=== PATIENT | female | born 1945 | race Caucasian/White ===

== ENCOUNTER 2017-09-26 22:24 | Inpatient (IN) | payer OTHER, MEDICARE ==
[~2017-09-26] VITALS: Ht 165.1 cm; Wt 87.8 kg
[~2017-09-26 22:24] MED LIST: ALLO100T PO; AMLO5TAB22 PO; ASPI81 CHEW; FENO54TA PO; IRON325T2 PO; LEVA250T PO; LISI-363 PO; LOVA40TA PO; PAXI20TA26 PO; PROT40TA PO; TAB-TAB PO
[2017-09-26 22:37] VITALS: BP 115/59; PULSE 72; RESP 20; TEMP 98.2; O2SAT 97
[2017-09-27] VITALS (10 sets, daily range): BP systolic 132–158; BP diastolic 67–79; PULSE 63–85; RESP 18–22; TEMP 97–101; O2SAT 95–98
--- NOTE | 2017-09-27 00:24 | PD ---
HPI Chief Complaint: Cold / Flu Symptoms Time Seen by Provider: 00:19 Travel History International Travel<30 days: No Contact w/Intl Traveler<30days: No Traveled to known affect area: No History of Present Illness HPI The patient is a 72-year-old female that complains of cough and congestion for 2 weeks. She was already seen by her primary care physician and her primary care physician gave her Biaxin, she has already completed the course of Biaxin yesterday. The cough is nonproductive. She was definitely short of breath earlier tonight and this is one reason she came in to be seen in the emergency department. PFSH Past Medical History Arthritis: Yes Asthma: No Autoimmune Disease: No Blood Disorders: No Anxiety: No Depression: No Heart Rhythm Problems: No Cancer: No Cardiovascular Problems: No High Cholesterol: Yes Chemotherapy: No Chest Pain: No Congestive Heart Failure: No COPD: No Cerebrovascular Accident: No Diabetes: No Diminished Hearing: No Endocrine: No Gastrointestinal Disorders: Yes GERD: Yes Glaucoma: No Genitourinary: No Hepatitis: No Hiatal Hernia: No Hypertension: Yes Immune Disorder: No Implanted Vascular Access Dvce: Yes Kidney Stones: No Musculoskeletal: Yes Neurologic: No Psychiatric: No Reproductive: Yes (hysterectomy) Respiratory: Yes Immunizations Current: Yes Migraines: No Myocardial Infarction: No Pneumonia: Yes (" A CHILD") Radiation Therapy: No Renal Failure: No Seizures: No Sickle Cell Disease: No Sleep Apnea: Yes (CPAP) Thyroid Disease: No Ulcer: Yes Menopausal: Yes Past Surgical History Abdominal Surgery: No AICD: No Arteriovenous Shunt: No Cardiac Surgery: No Ear Surgery: No Endocrine Surgery: No Eye Surgery: No Genitourinary Surgery: No Gynecologic Surgery: Yes (HYSTERECTOMY) Hysterectomy: Yes Insulin Pump: No Joint Replacement: Yes (BILAT KNEE, RIGHT HIP) Oral Surgery: No Pacemaker: No Thoracic Surgery: No Other Surgery: Yes (BENIGN TUMOR L POSTERIOR FOOT,EXCISED 1979) Social History Alcohol Use: No Tobacco Use: No Substance Use: No Allergies-Medications (Allergen,Severity, Reaction): Coded Allergies: penicillin G (Unverified Allergy, Severe, HIVES, 03/14/17) penicillin V (Unverified Allergy, Severe, 03/14/17) Reported Meds & Prescriptions Reported Meds & Active Scripts Active Reported Sodium Bicarbonate 650 Mg Tab 650 Mg PO TIDPC Pantoprazole (Pantoprazole Sodium) 40 Mg Tab 40 Mg PO DAILY Paroxetine (Paroxetine HCl) 20 Mg Tab 20 Mg PO DAILY Multivitamins with Minerals Hp (Multivitamin,Ther and Minerals) 1 Each Capsule [place]-3 Fish Oil/Vitamin (Fish Oil-Cholecalciferol) 1,000-1,000 Mg Cap 1 Cap PO DAILY Lisinopril 20 Mg Tab 20 Mg PO DAILY Cranberry (Cranberry Fruit Extract) 500 Mg Capsule 500 Mg PO DAILY Aspirin 81 Mg Chew 81 Mg CHEW DAILY Amlodipine (Amlodipine Besylate) 10 Mg Tab 10 Mg PO DAILY Allopurinol 100 Mg Tab 100 Mg PO DAILY Ferrous Sulfate 325 Mg (65 Mg Iron) Tablet 325 Mg PO MON/MON/FRI Vitamin D3 (Cholecalciferol) 400 Unit Cap 400 Units PO DAILY Review of Systems Except as stated in HPI: all other systems reviewed are Neg Physical Exam Narrative GENERAL: SKIN: Focused skin assessment warm/dry. HEAD: Atraumatic. Normocephalic. EYES: Pupils equal and round. No scleral icterus. No injection or drainage. ENT: No nasal bleeding or discharge. Mucous membranes pink and moist. NECK: Trachea midline. No JVD. CARDIOVASCULAR: Regular rate and rhythm. No murmur appreciated. RESPIRATORY: No accessory muscle use. Bilateral wheezes and mostly rhonchi are heard in all lung bojorquez. Breath sounds equal bilaterally. GASTROINTESTINAL: Abdomen soft, non-tender, nondistended. Hepatic and splenic margins not palpable. MUSCULOSKELETAL: No obvious deformities. No clubbing. No cyanosis. No edema. NEUROLOGICAL: Awake and alert. No obvious cranial nerve deficits. Motor grossly within normal limits. Normal speech. PSYCHIATRIC: Appropriate mood and affect; insight and judgment normal. Data Data Last Documented VS Vital Signs Date Time Temp Pulse Resp B/P (MAP) Pulse Ox O2 Delivery O2 Flow Rate FiO2 09/27/17 00:00 97.7 85 18 138/74 (95) 97 Room Air Orders Orders Influenzae A/B Antigen (09/27/17 00:19) Chest, Pa & Lat (09/27/17 00:19) Albuterol-Ipratropium Neb (Duoneb Neb) (09/27/17 00:30) B-Type Natriuretic Peptide (09/27/17 01:31) Electrocardiogram (09/27/17 01:33) Basic Metabolic Panel (Bmp) (09/27/17 01:33) Complete Blood Count With Diff (2/28/18 01:33) Urinalysis - C+S If Indicated (09/27/17 01:33) Blood Culture (09/27/17 01:33) Arterial Blood Gas (Abg) (09/27/17 01:33) Sodium Chloride 0.9% Flush (Ns Flush) (09/27/17 01:45) Ceftriaxone Inj (Rocephin Inj) (09/27/17 01:45) Azithromycin Inj (Zithromax Inj) (09/27/17 01:45) Admit Order (Ed Use Only) (09/27/17 01:38) Labs Laboratory Tests Test 09/27/17 01:40 Blood Gas Puncture Site RT RADIAL Blood Gas Patient Temperature 98.6 Blood Gas HCO3 15 mmol/L Blood Gas Base Excess -9.9 mmol/L Blood Gas Oxygen Saturation 95 % Arterial Blood pH 7.36 Arterial Blood Partial Pressure CO2 26 mmHG Arterial Blood Partial Pressure O2 92 mmHG Arterial Blood Oxygen Content 12.2 Vol % Arterial Blood Carboxyhemoglobin 1.2 % Arterial Blood Methemoglobin 0.9 % Blood Gas Hemoglobin 9.0 G/DL Blood Gas Inspired Oxygen 21 % MDM Medical Decision Making Medical Screen Exam Complete: Yes Emergency Medical Condition: Yes Medical Record Reviewed: Yes Differential Diagnosis Pneumonia, bronchitis, bronchitis with bronchospasm, viral upper respiratory infection, hypoxemia Narrative Course The patient has a bilateral pneumonia. She was admitted to the [facility], Dr. Berman. The patient did benefit from DuoNeb treatments. However, she was still short of breath after the DuoNeb treatments and wanted admission, she did not feel comfortable going home. Diagnosis Primary Impression: Bilateral pneumonia Admitting Information Admitting Physician Requests: Admit Jaoo Coy MD Sep 27, 2017 00:24
[2017-09-27] MEDS: RESP: ALBUTEROL 2.5 MG/IPRATROPIUM 0.5 MG NEB (SCH) INH (00:31)
--- NOTE | 2017-09-27 01:16 | RADRPT ---
EXAM DATE/TIME: 09/27/2017 00:33 [facility] COMPARISON: No previous studies available for comparison. INDICATIONS : Cough and congestion. MEDICAL HISTORY : None. SURGICAL HISTORY : None. ENCOUNTER: Initial ACUITY: 2 weeks PAIN SCORE: 0/10 LOCATION: Bilateral chest FINDINGS: Mild diffuse interstitial prominence with patchy airspace opacities in the right upper lobe and bilat eral lower lobes. Cardiomediastinal contours are within normal limits. Bony thorax is intact. CONCLUSION: 1. Mild diffuse interstitial edema with patchy airspace opacities in the right upper lobe and bilater al lower lobes. Cannot exclude developing multilobar pneumonia in the appropriate clinical setting. Heladio Vergara MD on September 27, 2017 at 1:13 Board Certified Radiologist. This report was verified electronically.
[2017-09-27] MEDS ORDERED: AZITHROMYCIN INJ 500 MG in SODIUM CHLOR 0.9% 250 ML INJ 250 ML IV ONE (01:45)
[2017-09-27] MEDS ORDERED: cefTRIAXone INJ 1,000 MG in SODIUM CHLORIDE 0.9% INJ 100 ML IV ONE (01:45)
[2017-09-27] MEDS ORDERED: SODIUM CHLORIDE 0.9% FLUSH 10 ML FLUSH IVF PRN (01:45)
[2017-09-27 02:11] LABS: AUTOMATED NEUTROPHIL # 10.8 TH/MM3 (1.8-7.7); BASOPHIL % 0.2 % (0.0-2.0); EOSINOPHIL # 0.1 TH/MM3 (0-0.4); EOSINOPHIL % 0.5 % (0.0-4.0); HEMATOCRIT 27.5 % (35.0-46.0); HEMOGLOBIN 9.1 GM/DL (11.6-15.3); LYMPH % 15.7 % (9.0-44.0); LYMPHOCYTE # 2.2 TH/MM3 (1.0-4.8); MEAN CELL VOLUME 88.7 FL (80.0-100.0); MEAN CORPUSCULAR HEMOGLOBIN 29.4 PG (27.0-34.0); MEAN CORPUSCULAR HGB CONC 33.2 % (32.0-36.0); MEAN PLATELET VOLUME 7.2 FL (7.0-11.0); MONO % 5.4 % (0.0-8.0); MONOCYTE # 0.8 TH/MM3 (0-0.9); NEUT % 78.2 % (16.0-70.0); PLATELET COUNT 406 TH/MM3 (150-450); RED CELL DISTRIBUTION WIDTH 14.1 % (11.6-17.2); WHITE BLOOD COUNT 13.9 TH/MM3 (4.0-11.0)
[2017-09-27 02:12] LABS: BILIRUBIN, URINE NEG (NEG); BLOOD, URINE NEG (NEG); GLUCOSE,URINE NEG (NEG); KETONE, URINE NEG (NEG); NITRITE,URINE NEG (NEG); URINE LEUKOCYTE ESTERASE NEG (NEG)
[2017-09-27] MEDS ORDERED: NALOXONE HCL 0.4 MG/ML AMP IV PUSH PRN (02:15)
[2017-09-27] MEDS ORDERED: SODIUM CHLORIDE 0.9% FLUSH 10 ML FLUSH IV FLUSH PRN (02:15)
[2017-09-27] MEDS ORDERED: methylPREDNISolone SOD SUCC 125 MG/2 ML VIAL IV PUSH ONE (02:15)
[2017-09-27 02:21] LABS: MUCUS URINE FEW /lpf (OCC); URINE COLOR YELLOW (YELLW/STRAW)
[2017-09-27 02:22] LABS: RBC, URINE 0-3 /hpf (0-3)
[2017-09-27 02:23] LABS: AMORPHOUS SEDIMENT, URINE SMALL; SQUAMOUS EPITHELIAL CELL URINE 0-5 /hpf (0-5); WBC, URINE 0-2 /hpf (0-5)
[2017-09-27 02:30] LABS: BICARBONATE 18.6 MEQ/L (21.0-32.0); CALCIUM 8.3 MG/DL (8.5-10.1); CREATININE 1.8 MG/DL (0.50-1.00)
[2017-09-27] MEDS ORDERED: FERR325T18 PO (02:50)
[2017-09-27] MEDS ORDERED: CHOL1CAP8 PO (02:50)
[2017-09-27] MEDS ORDERED: POTASSIUM CHLORIDE 20 MEQ CONTROLLED RELEASE TAB PO ONE ×2 (03:00→10:00)
[2017-09-27] MEDS ORDERED: ASPI-516 CHEW (03:35)
[2017-09-27] MEDS ORDERED: CRAN500C9 PO (03:35)
[2017-09-27] MEDS ORDERED: AMLO10TA2 PO (03:35)
[2017-09-27] MEDS ORDERED: LISI-515 PO (03:35)
[2017-09-27] MEDS ORDERED: PANT40TA3 PO (03:35)
[2017-09-27] MEDS ORDERED: SODI650T PO (03:35)
[2017-09-27] MEDS ORDERED: ALLO100T PO (03:35)
[2017-09-27] MEDS ORDERED: MULTCAP (03:35)
[2017-09-27] MEDS ORDERED: OMEGCAP PO (03:35)
[2017-09-27] MEDS ORDERED: PARO20TA2 PO (03:35)
[2017-09-27 10:42] LABS: AUTOMATED NEUTROPHIL # 12.4 TH/MM3 (1.8-7.7); BASOPHIL % 0.2 % (0.0-2.0); EOSINOPHIL # 0.1 TH/MM3 (0-0.4); EOSINOPHIL % 0.5 % (0.0-4.0); HEMATOCRIT 25.6 % (35.0-46.0); HEMOGLOBIN 8.4 GM/DL (11.6-15.3); LYMPH % 6.3 % (9.0-44.0); LYMPHOCYTE # 0.9 TH/MM3 (1.0-4.8); MEAN CELL VOLUME 89.2 FL (80.0-100.0); MEAN CORPUSCULAR HEMOGLOBIN 29.2 PG (27.0-34.0); MEAN CORPUSCULAR HGB CONC 32.7 % (32.0-36.0); MEAN PLATELET VOLUME 6.8 FL (7.0-11.0); MONO % 3.1 % (0.0-8.0); MONOCYTE # 0.4 TH/MM3 (0-0.9); NEUT % 89.9 % (16.0-70.0); PLATELET COUNT 407 TH/MM3 (150-450); RED BLOOD COUNT 2.87 MIL/MM3 (4.00-5.30); RED CELL DISTRIBUTION WIDTH 14.1 % (11.6-17.2); WHITE BLOOD COUNT 13.8 TH/MM3 (4.0-11.0)
[2017-09-27 11:01] LABS: CALCIUM 8.2 MG/DL (8.5-10.1)
[2017-09-27 11:02] LABS: MAGNESIUM 1.6 MG/DL (1.5-2.5)
[2017-09-27 11:05] LABS: CREATININE 1.6 MG/DL (0.50-1.00)
[2017-09-27] MEDS: SODIUM CHLORIDE 0.9% FLUSH 10 ML FLUSH IV FLUSH SCH ×2 (11:14→21:15)
--- NOTE | 2017-09-27 11:38 | EKG ---
Date Performed: 09/27/2017 Time Performed: 02:13:09 PTAGE: 72 years EKG: Sinus rhythm NONSPECIFIC T-WAVE ABNORMALITY BORDERLINE ECG PREVIOUS TRACING : 07/17/2013 19.48 Compared to prior tracing, nonspecific T wave changes are now present. DOCTOR: Kishore Washburn Interpretating Date/Time 09/27/2017 11:56:43
--- NOTE | 2017-09-27 12:13 | HHI.HP ---
HPI Service [facility] Primary Care Physician Makenna Segura Do, MD Admission Diagnosis Bilateral pneumonia Diagnoses: Travel History International Travel<30 Days: No Contact w/Intl Traveler <30 Da: No Traveled to Known Affected Are: No History of Present Illness a while back, had cold and is getting worse and worse wthi cold went to bed at 9p.m. was coughign constantly when she wakes up, and could not stop, anxious and family brought her hree symptoms started 1.5 weeks ago took 1 week or more course of antibiotics - 2 meds she thinks it starts B (bactrim)- bid another antibiotic is tid dose - ceftin? this time, had fever 101, 102 yesterday took tylenol at home no sputum production not on home oxygen but has sleep apnea on cpap no other symptoms but has hx of UTIs and was supposed to have urine checked today by pcp was in hosptials in and out because had cabg on 09/04/17 Review of Systems Except as stated in HPI: all other systems reviewed are Neg Past Family Social History Past Medical History htn heart murmur- leaky valve- [facility]- Dr Rowley, last echo was 1 yr ago sleep apnea on cpap ckd hyperlipidemia duodenal ulcer gastritis Past Surgical History hysterectomy foot sx both knees replaced right hip orif Allergies: Coded Allergies: penicillin G (Unverified Allergy, Severe, HIVES, 03/14/17) penicillin V (Unverified Allergy, Severe, 03/14/17) Family History both parents- cancer; lung cancer but were smokers Social History never smoked no drinking etoh or drugs live with , but son and grandaughter live next door Physical Exam Vital Signs Vital Signs Date Time Temp Pulse Resp B/P (MAP) Pulse Ox O2 Delivery O2 Flow Rate FiO2 09/27/17 11:58 Nasal Cannula 2.00 09/27/17 08:00 97.9 78 22 158/79 (105) 98 09/27/17 04:07 64 09/27/17 04:00 Nasal Cannula 2.00 09/27/17 04:00 97.0 63 20 137/67 (90) 95 09/27/17 03:41 97.9 84 18 132/70 (90) 98 09/27/17 01:45 97.8 85 18 145/78 (100) 97 Room Air 09/27/17 00:00 97.7 85 18 138/74 (95) 97 Room Air 09/26/17 22:37 98.2 72 20 115/59 (77) 97 Physical Exam GENERAL: This is a well-nourished, well-developed patient, sittign up in chair, coughing quitd a bit SKIN: No rashes, ecchymoses or lesions. tactile fever HEAD: Atraumatic. Normocephalic. No temporal or scalp tenderness. EYES: No scleral icterus. No injection or drainage. ENT: Nose without bleeding, purulent drainage or septal hematoma. Airway patent. NECK: Trachea midline. No JVD. Supple, nontender, no meningeal signs. CARDIOVASCULAR: Regular rate and rhythm withou gallops, or rubs. systolic murmur throughout precordium with radiation to axilla and neck RESPIRATORY: bilateral mild crepitations, decreased air entry, minimal wheezing bilaterally GASTROINTESTINAL: Abdomen soft, non-tender, nondistended. No guarding. MUSCULOSKELETAL: Extremities without clubbing, cyanosis, or edema. No calf tenderness. NEUROLOGICAL: Awake and alert. Motor and sensory grossly within normal limits. Normal speech. Laboratory Laboratory Tests Test 09/27/17 01:40 09/27/17 01:52 09/27/17 02:00 09/27/17 10:20 Blood Gas Puncture Site RT RADIAL Blood Gas Patient Temperature 98.6 Blood Gas HCO3 15 Blood Gas Base Excess -9.9 Blood Gas Oxygen Saturation 95 Arterial Blood pH 7.36 Arterial Blood Partial Pressure CO2 26 Arterial Blood Partial Pressure O2 92 Arterial Blood Oxygen Content 12.2 Arterial Blood Carboxyhemoglobin 1.2 Arterial Blood Methemoglobin 0.9 Blood Gas Hemoglobin 9.0 Blood Gas Inspired Oxygen 21 White Blood Count 13.9 13.8 Red Blood Count 3.10 2.87 Hemoglobin 9.1 8.4 Hematocrit 27.5 25.6 Mean Corpuscular Volume 88.7 89.2 Mean Corpuscular Hemoglobin 29.4 29.2 Mean Corpuscular Hemoglobin Concent 33.2 32.7 Red Cell Distribution Width 14.1 14.1 Platelet Count 406 407 Mean Platelet Volume 7.2 6.8 Neutrophils (%) (Auto) 78.2 89.9 Lymphocytes (%) (Auto) 15.7 6.3 Monocytes (%) (Auto) 5.4 3.1 Eosinophils (%) (Auto) 0.5 0.5 Basophils (%) (Auto) 0.2 0.2 Neutrophils # (Auto) 10.8 12.4 Lymphocytes # (Auto) 2.2 0.9 Monocytes # (Auto) 0.8 0.4 Eosinophils # (Auto) 0.1 0.1 Basophils # (Auto) 0.0 0.0 CBC Comment DIFF FINAL DIFF FINAL Differential Comment Blood Urea Nitrogen 41 39 Creatinine 1.80 1.60 Random Glucose 154 157 Calcium Level 8.3 8.2 Sodium Level 137 138 Potassium Level 2.9 3.1 Chloride Level 105 108 Carbon Dioxide Level 18.6 19.0 Anion Gap 13 11 Estimat Glomerular Filtration Rate 28 32 B-Type Natriuretic Peptide 60 Urine Color YELLOW Urine Turbidity CLEAR Urine pH 5.0 Urine Specific [place] 1.021 Urine Protein 30 Urine Glucose (UA) NEG Urine Ketones NEG Urine Occult Blood NEG Urine Nitrite NEG Urine Bilirubin NEG Urine Leukocyte Esterase NEG Urine RBC 0-3 Urine WBC 0-2 Urine Squamous Epithelial Cells 0-5 Urine Amorphous Sediment SMALL Urine Hyaline Casts 10-14 Urine Mucus FEW Microscopic Urinalysis Comment CULT NOT INDICATED Magnesium Level 1.6 Date/Time Source Procedure Growth Status 09/27/17 01:52 Blood Peripheral Aerobic Blood Culture Pending Received 09/27/17 01:52 Blood Peripheral Anaerobic Blood Culture Pending Received 09/27/17 00:21 Nasal Aspirate Influenza Types A,B Antigen (BRUNO) - Final NEGATIVE FOR FLU A AND B ANTIGEN.... Complete Result Diagram: 09/27/17 1020 09/27/17 1020 Imaging Last 48 hours Impressions Chest X-Ray 09/27/17 0019 Signed Impressions: Service Date/Time: Wednesday, September 27, 2017 00:33 - CONCLUSION: 1. Mild diffuse interstitial edema with patchy airspace opacities in the right upper lobe and bilateral lower lobes. Cannot exclude developing multilobar pneumonia in the appropriate clinical setting. MD Mario Fish VTE Risk Assessment Caprini VTE Risk Assessment: Mod/High Risk (score >= 2) Caprini Risk Assessment Model Point Value = 1 Point Value = 2 Point Value = 3 Point Value = 5 Age 41-60 Minor surgery BMI > 25 kg/m2 Swollen legs Varicose veins or History of unexplained or recurrent spontaneous Oral contraceptives or hormone replacement Sepsis (< 1 month) Serious lung disease, including pneumonia (< 1 month) Abnormal pulmonary function Acute myocardial infarction Congestive heart failure (< 1 month) History of inflammatory bowel disease Medical patient at bed rest Age 61-74 Arthroscopic surgery Major open surgery (> 45 min) Laparoscopic surgery (> 45 min) Malignancy Confined to bed (> 72 hours) Immobilizing plaster cast Central venous access Age >= 75 History of VTE Family history of VTE Factor V Leiden Prothrombin [id number] Lupus anticoagulant Anticardiolipin antibodies Elevated serum homocysteine Heparin-induced thrombocytopenia Other congenital or acquired thrombophilia Stroke (< 1 month) Elective arthroplasty Hip, pelvis, or leg fracture Acute spinal cord injury (< 1 month) Prophylaxis Regimen Total Risk Factor Score Risk Level Prophylaxis Regimen 0-1 Low Early ambulation 2 Moderate Order ONE of the following: *Sequential Compression Device (SCD) *Heparin 5000 units SQ BID 3-4 Higher Order ONE of the following medications: *Heparin 5000 units SQ TID *Enoxaparin/Lovenox 40 mg SQ daily (WT < 150 kg, CrCl > 30 mL/min) *Enoxaparin/Lovenox 30 mg SQ daily (WT < 150 kg, CrCl > 10-29 mL/min) *Enoxaparin/Lovenox 30 mg SQ BID (WT < 150 kg, CrCl > 30 mL/min) AND/OR *Sequential Compression Device (SCD) 5 or more Highest Order ONE of the following medications: *Heparin 5000 units SQ TID (Preferred with Epidurals) *Enoxaparin/Lovenox 40 mg SQ daily (WT < 150 kg, CrCl > 30 mL/min) *Enoxaparin/Lovenox 30 mg SQ daily (WT < 150 kg, CrCl > 10-29 mL/min) *Enoxaparin/Lovenox 30 mg SQ BID (WT < 150 kg, CrCl > 30 mL/min) AND *Sequential Compression Device (SCD) Assessment and Plan Assessment and Plan Impression: bilateral pneumonia multilobar pneumonia failed outpatient therapy valvluar heart dx htn heart murmur- leaky valve- [facility]- Dr Rowley, last echo was 1 yr ago sleep apnea on cpap ckd hyperlipidemia duodenal ulcer gastritis Plan: pt received rocephin and azithromycin in er start on cefepime 2g iv q12hrs will monitor for fever trends check echo for vegetations with structural heart defect nebs prn and scheduled no need of steroids for now if no improvement with fevers, then to consider ID consult for antibiotics choice resume home meds dvt prophylaxis with heparin Discussed Condition With Patient, nursing staff Physician Certification 2 Midnight Certification Type: Admission for Inpatient Services Order for Inpatient Services The services are ordered in accordance with Medicare regulations or non- Medicare payer requirements, as applicable. In the case of services not specified as inpatient-only, they are appropriately provided as inpatient services in accordance with the 2-midnight benchmark. Estimated LOS (days): 2 days is the estimated time the patient will need to remain in the hospital, assuming treatment plan goals are met and no additional complications. Post-Hospital Plan: Home Genesis Gaming MD Sep 27, 2017 12:13
[2017-09-27] MEDS ORDERED: RESP: ALBUTEROL 2.5 MG/IPRATROPIUM 0.5 MG NEB (PRN) NEB (12:15)
[2017-09-27] MEDS: SODIUM BICARBONATE 325 MG TAB PO SCH ×2 (13:26→17:20)
[2017-09-27] MEDS ORDERED: SODIUM BICARBONATE 650 MG TAB PO SCH (13:30)
[2017-09-27] MEDS: RESP: ALBUTEROL 2.5 MG/IPRATROPIUM 0.5 MG NEB (SCH) NEB ×2 (14:08→21:59)
[2017-09-27] MEDS: CEFEPIME INJ 2,000 MG in SODIUM CHLORIDE 0.9% INJ 100 ML IV SCH (14:48)
[2017-09-27] MEDS: HEPARIN SODIUM - SQ 10,000 UNITS/ML VIAL SQ SCH (21:16)
[2017-09-28] VITALS: BP 147/78; PULSE 76; RESP 20; TEMP 98.8; O2SAT 97
[2017-09-28] MEDS: CEFEPIME INJ 2,000 MG in SODIUM CHLORIDE 0.9% INJ 100 ML IV SCH ×2 (01:24→13:00)
[2017-09-28 04:00] VITALS: BP 153/86; PULSE 69; RESP 20; TEMP 98.2; O2SAT 97
[2017-09-28 06:02] LABS: AUTOMATED NEUTROPHIL # 6.9 TH/MM3 (1.8-7.7); BASOPHIL % 0.3 % (0.0-2.0); EOSINOPHIL # 0.1 TH/MM3 (0-0.4); EOSINOPHIL % 1.1 % (0.0-4.0); HEMATOCRIT 25.8 % (35.0-46.0); HEMOGLOBIN 8.6 GM/DL (11.6-15.3); LYMPH % 18.5 % (9.0-44.0); LYMPHOCYTE # 1.7 TH/MM3 (1.0-4.8); MEAN CORPUSCULAR HEMOGLOBIN 29.5 PG (27.0-34.0); MEAN CORPUSCULAR HGB CONC 33.2 % (32.0-36.0); MEAN PLATELET VOLUME 7.3 FL (7.0-11.0); MONO % 7.9 % (0.0-8.0); MONOCYTE # 0.7 TH/MM3 (0-0.9); NEUT % 72.2 % (16.0-70.0); PLATELET COUNT 455 TH/MM3 (150-450); RED CELL DISTRIBUTION WIDTH 13.9 % (11.6-17.2); WHITE BLOOD COUNT 9.4 TH/MM3 (4.0-11.0)
[2017-09-28 06:31] LABS: CALCIUM 8.6 MG/DL (8.5-10.1); CREATININE 1.3 MG/DL (0.50-1.00)
[2017-09-28] MEDS: RESP: ALBUTEROL 2.5 MG/IPRATROPIUM 0.5 MG NEB (SCH) NEB ×2 (07:44→14:43)
[2017-09-28 08:00] VITALS: BP 143/68; PULSE 93; RESP 20; TEMP 98.5; O2SAT 98
[2017-09-28] MEDS ORDERED: LISINOPRIL 20 MG TAB PO SCH (09:00)
[2017-09-28] MEDS ORDERED: ASPIRIN 81 MG CHEW TAB CHEW SCH (09:00)
[2017-09-28] MEDS ORDERED: CHOLECALCIFEROL (VIT D3) 400 UNIT TAB PO SCH (09:00)
[2017-09-28] MEDS ORDERED: PANTOPRAZOLE SOD 40 MG DELAYED RELEASE TAB PO SCH (09:00)
[2017-09-28] MEDS ORDERED: PARoxetine HCL 20 MG TAB PO SCH (09:00)
[2017-09-28] MEDS: SODIUM CHLORIDE 0.9% FLUSH 10 ML FLUSH IV FLUSH SCH (11:09)
[2017-09-28] MEDS: SODIUM BICARBONATE 325 MG TAB PO SCH ×2 (11:09→13:57)
[2017-09-28] MEDS: HEPARIN SODIUM - SQ 10,000 UNITS/ML VIAL SQ SCH (11:10)
--- NOTE | 2017-09-28 11:52 | ECHRPT ---
Indication: R/O Vegetations CONCLUSIONS The left ventricular systolic function is low normal with an estimated ejection fraction in the rang e of 50- 55%. Wall thickness is measured at the upper limits of normal. Normal left ventricular size. Ebhxe-oh-dmdj mitral valve regurgitation. Mild aortic valve stenosis. Aortic valve mean gradient is 19.7 mmHg. There is mild tricuspid valve regurgitation. The estimated pulmonary arterial pressure is 31 mmHg. BP: / HR: Rhythm: Sinus MEASUREMENTS (Male / Female) Normal Values Technical Quality:Good 2D ECHO LV Diastolic Diameter PLAX 4.0 cm 4.2 - 5.9 / 3.9 - 5.3 cm LV Systolic Diameter PLAX 3.2 cm IVS Diastolic Thickness 1.1 cm 0.6 - 1.0 / 0.6 - 0.9 cm LVPW Diastolic Thickness 1.1 cm 0.6 - 1.0 / 0.6 - 0.9 cm LV Relative Wall Thickness 0.5 LVOT Diameter 2.1 cm M-MODE Aortic Root Diameter MM 2.8 cm LA Systolic Diameter MM 3.8 cm LA Ao Ratio MM 1.4 AV Cusp Separation MM 2.0 cm DOPPLER AV Peak Velocity 283.0 cm/s AV Peak Gradient 32.0 mmHg AV Mean Gradient 19.7 mmHg AV Velocity Time Integral 67.8 cm LVOT Peak Velocity 162.0 cm/s LVOT Peak Gradient 10.5 mmHg AV Area Cont Eq pk 2.0 cm MR Peak Velocity 446.0 cm/s MR Peak Gradient 79.6 mmHg Mitral E Point Velocity 114.0 cm/s Mitral A Point Velocity 87.4 cm/s Mitral E to A Ratio 1.3 LV E' Septal Velocity 8.3 cm/s Mitral E to LV E' Septal Ratio 13.8 TR Peak Velocity 279.0 cm/s TR Peak Gradient 31.1 mmHg PV Peak Velocity 187.0 cm/s PV Peak Gradient 14.0 mmHg FINDINGS LEFT VENTRICLE The left ventricular systolic function is low normal with an estimated ejection fraction in the rang e of 50- 55%. Wall thickness is measured at the upper limits of normal. Normal left ventricular size. RIGHT VENTRICLE Normal right ventricular size and systolic function. LEFT ATRIUM The left atrial size is normal. RIGHT ATRIUM The right atrial size is normal. ATRIAL SEPTUM Normal atrial septal thickness without atrial level shunting by limited color doppler interrogation. AORTA The aortic root and proximal ascending aorta are normal in size on limited imaging. MITRAL VALVE Skmlr-cy-immd mitral valve regurgitation. AORTIC VALVE Mild aortic valve stenosis. Aortic valve mean gradient is 19.7 mmHg. TRICUSPID VALVE There is mild tricuspid valve regurgitation. The estimated pulmonary arterial pressure is 31 mmHg. PULMONARY VALVE The pulmonary valve is not well visualized. VESSELS The inferior vena cava is normal in size. PERICARDIUM No pericardial effusion. Abdirashid Dorantes MD, FACC, [facility] [place] ([place]ronically Signed) Final Date:28 September 2017 11:50
[2017-09-28 12:00] VITALS: BP 146/68; PULSE 73; RESP 20; TEMP 97.4; O2SAT 97
--- NOTE | 2017-09-28 13:40 | HHI.PR ---
Subjective Remarks Patient seen and examined today for follow-up on pneumonia, cough. Patient does not require any oxygen for O2 supplementation. Her only complaint at this time is a really bad cough. Physical exam is unremarkable. Patient clinically stable at this time. We will see if we can get the cough controlled and plan to discharge. Objective Vitals Vital Signs Date Time Temp Pulse Resp B/P (MAP) Pulse Ox O2 Delivery O2 Flow Rate FiO2 09/28/17 13:30 Room Air 2.00 09/28/17 12:00 97.4 73 20 146/68 (94) 97 09/28/17 08:00 98.5 93 20 143/68 (93) 98 09/28/17 04:00 98.2 69 20 153/86 (108) 97 09/28/17 00:00 98.8 76 20 147/78 (101) 97 09/27/17 20:05 72 09/27/17 20:00 Room Air 09/27/17 20:00 99.8 78 20 143/77 (99) 96 09/27/17 16:00 101.0 79 18 148/75 (99) 96 I/O 09/27/17 09/27/17 09/27/17 09/28/17 09/28/17 09/28/17 07:00 15:00 23:00 07:00 15:00 23:00 Intake Total 350 ml 300 ml 2140 ml 580 ml Output Total 5 ml Balance 350 ml 300 ml 2135 ml 580 ml Intake Oral 300 ml 2140 ml 480 ml IV Total 350 ml 100 ml Output Urine Total 5 ml # Voids 1 1 2 # Bowel Movements 2 0 Result Diagram: 09/28/1730 09/28/17 0530 Objective Remarks GENERAL: Well-developed, well-nourished, in no acute distress. alert and orientated HEENT: Head is normocephalic without any lesions or masses noted. Facial features are symmetric. Eyes: Extraocular muscles are intact. NECK: Supple without any masses. Trachea midline no deviation. No JVD, CARDIAC: Regular rhythm, regular rate. S1/S2 are heard. No murmurs gallops or rubs. LUNGS: Clear to auscultation bilaterally. No wheeze, rhonchi or rales. No use of accessory muscles on inspiration or expiration. ABDOMEN: Soft, nontender. Nondistended. Bowel sounds heard in all 4 quadrants. No organomegaly or masses. Negative rebound, negative guarding EXTREMITIES: No edema, pulses are equal bilaterally. No cyanosis or clubbing NEUROLOGY: Mood and affect appear appropriate. Cranial nerves II through XII grossly intact. Moving all extremities, speech is clear Urinary Catheter: No Vascular Central Line Catheter: No A/P Assessment and Plan Bilateral patchy airspace opacity's, possible multilobar pneumonia, improved Patient started on cefepime IV Patient states that she is improved, however has significant cough Robitussin-AC was given with significant relief. Patient without any signs of hypoxia, she is on room air with O2 saturations 97% Interstitial edema by chest x-ray No documented history of any congestive heart failure. BNP 60 Echocardiogram shows ejection fraction 50-55% with mild aortic valve stenosis , mild tricuspid valve regurgitation Acute renal failure superimposed on chronic kidney disease stage III, with chronic acidosis Renal functions have returned to baseline Continued home medication sodium bicarbonate Avoid nephrotoxins Hypertension, hyperlipidemia continue home medications DVT prevention Subcutaneous heparin Discharge Planning Discharge home in stable condition Activity: Ad john. Diet: Healthy heart diet Medication per medication reconciliation Follow-up with primary medical doctor in 1 week Odell Coy Sep 28, 2017 13:40
[2017-09-28] MEDS ORDERED: guaiFENesin/CODEINE SYRUP 200 MG/20 MG/10 ML CUP PO PRN (14:00)
[2017-09-28] MEDS ORDERED: NEBULIZER1 MI1 (14:39)
[2017-09-28] MEDS ORDERED: guaiFEN-COD 200-20 MG/10ML LIQ PO (14:39)
[2017-09-28] MEDS ORDERED: Albuterol-Ipratropium Neb NEB (14:39)
[2017-09-28] MEDS ORDERED: ZITH500T PO (14:40)
--- NOTE | 2017-09-28 14:42 | HHI.DCPOC ---
Discharge Care Plan Diagnosis: (1) SOB (shortness of breath) (2) Pneumonia Goals to Promote Your Health * To prevent worsening of your condition and complications * To maintain your health at the optimal level Directions to Meet Your Goals Take your medications as prescribed Follow your dietary instruction Follow activity as directed Keep your appointments as scheduled Take your immunizations and boosters as scheduled If your symptoms worsen call your PCP, if no PCP go to Urgent Care Center or Emergency Room Smoking is Dangerous to Your Health. Avoid second hand smoke Call the 24-hour hour crisis hotline for domestic abuse at Odell Coy Sep 28, 2017 14:41
[2017-09-28 15:40] VITALS: BP 167/70; PULSE 83; RESP 20; TEMP 97.9; O2SAT 97
[2017-09-28] MEDS ORDERED: IPRAAER INH (17:42)
--- NOTE | 2017-10-02 12:34 | PQ ---
Physician Query Response Document PATIENT: MERLIN COLLINS : 1945 ADMIT DATE: 09/27/2017 1:43 AM DISCH DATE: 09/28/2017 5:59 PM RESPONDING PROVIDER #: meli QUERY TEXT: Sepsis Query The medical record reflects the following clinical findings, treatment, and risk factors. * Clinical Indicators T 101, RR 22 WBC 13.6 Platelets 455 CXR :right upper lobe and bilateral lower lobes. Cannot exclude developing multilobar pneumonia * Risk Factors cough x 1.5 weeks, failed OP therapy of 2 oral antibiotics * Treatment IV SoluMed x 1 IV Zithromax X 1, IV Maxipime, Nebulizers Please clarify and document your clinical opinion in the progress notes and discharge summary includi ng the definitive and/or presumptive diagnosis (suspected or probable), related to the above clinical findings. Please include clinical findings supporting your diagnosis. Thank you, Ai Lawler CDS: Ai Lawler Contact Number: CDS/RN ext. [phone] The patient's Clinical Indicators include: Sepsis, present on admission in the setting of treated with IV Zithromax and IV Maxipime. Other explanation of clinical findings. Unable to determine (no explanation for clinical findings). Query created by: Ai Lawler on 09/29/2017 7:27 AM RESPONSE TEXT: Patient did have sepsis related to presumed pneumonia Electronically signed by: Annabel Andrews MD 10/02/2017 12:31 PM
== END 2017-09-28 17:59 | disposition home or self-care (01) | DRG 871 ==
LOC: PHED 22:24 → PHEDA 09-27 01:43 → PH3B 09-27 03:35
PROVIDERS: ADMIT Hospitalist; ATTEND Hospitalist
DX: A41.9 Sepsis, unspecified organism (principal); J18.1 Lobar pneumonia, unspecified organism; N17.9 Acute kidney failure, unspecified; E87.2 Acidosis; N18.3 Chronic kidney disease, stage 3 (moderate); I12.9 Hypertensive chronic kidney disease with stage 1 through stage 4 chronic kidney disease, or unspecified chronic kidney disease; I35.0 Nonrheumatic aortic (valve) stenosis; I07.1 Rheumatic tricuspid insufficiency; G47.30 Sleep apnea, unspecified; E78.00 Pure hypercholesterolemia, unspecified; K21.9 Gastro-esophageal reflux disease without esophagitis; M19.90 Unspecified osteoarthritis, unspecified site; Z96.641 Presence of right artificial hip joint; Z96.653 Presence of artificial knee joint, bilateral; Z87.11 Personal history of peptic ulcer disease
CPT/HCPCS: 36600; 71046; 80048; 81001; 82805; 83735; 83880; 85025; 87040; 87804; 93005; 93306; 94640; 94664; 96374; J0456; J0692; J0696; J1644; J2930; J7050